=== PATIENT | female | born 1955 | race Hispanic/Latino ===

== ENCOUNTER 2016-12-24 13:16 | Outpatient (CLI) | payer BC ==
--- NOTE | 2016-12-25 15:06 | Mammography Report ---
BILATERAL DIGITAL SCREENING MAMMOGRAM with CAD: 12/24/16 13:16:00 CLINICAL: Routine screening. COMPARISON:12/19/15 FINDINGS: The breasts are heterogeneously dense, which may obscure small masses. No mass, architectural distortion or suspicious calcifications. IMPRESSION: No mammographic evidence of malignancy. BI-RADS CATEGORY: 1 - - Negative RECOMMENDATION: Routine mammographic screening in one year. COMMENT: Patient follow-up letters are generated by our [employer] application.
== END 2016-12-24 13:17 | disposition home or self-care (01) ==
LOC: SPVWC 13:16
PROVIDERS: ATTEND Obstetrics & Gynecology Gynecology
DX: Z12.31 Encounter for screening mammogram for malignant neoplasm of breast (principal)
CPT/HCPCS: 77067; G0202

== ENCOUNTER 2017-12-31 10:31 | Outpatient (CLI) | payer BC ==
--- NOTE | 2017-12-31 14:09 | Mammography Report ---
The screening tomomammogram and compiled 2-D mammogram: Routine 2-D images are obtained and compared to prior exams dating back to December 2015. There is a heterogeneously dense and symmetrically distributed fibroglandular pattern. There is no focal mass, architectural distortion, nor calcifications. No interval change is identified. Coronal and sagittal tomograms were obtained bilaterally with no additional information provided. CAD not captured. Impression: Stable breast pattern. No suspicious findings. Recommendation: Annual mammogram followup. BI-RADS CATEGORY: 1 = Negative ACR BI-RADS MAMMOGRAPHIC CODES: 0 = Needs additional imaging evaluation; 1 = Negative; 2 = Benign; 3 = Probably benign; 4 = Suspicious; 5 = Malignant; 6 = Known biopsy-proven malignancy COMMENT: 1. Dense breast tissue, i.e., adenosis, fibrocystic changes, etc., may obscure an underlying neoplasm. 2. Approximately 10% of cancers are not detected with mammography. 3. A negative mammography report should not delay biopsy if a clinically suspicious mass is present.
== END 2017-12-31 10:32 | disposition home or self-care (01) ==
LOC: MAMMO 10:31
PROVIDERS: ATTEND Obstetrics & Gynecology Gynecology
DX: Z12.31 Encounter for screening mammogram for malignant neoplasm of breast (principal)
CPT/HCPCS: 77063; 77067